=== PATIENT | female | born 1960 | race Caucasian/White ===

== ENCOUNTER → 2017-05-25 | Outpatient (CLI) | payer BC ==
--- NOTE | 2017-05-28 17:15 | Diagnostic Imaging Report ---
Bilateral screening mammogram 2D views with tomosynthesis. The current study was also evaluated with a Computer Aided Detection (CAD) system. INDICATION: Screening. No current complaints stated on the questionnaire. COMPARISON: 01/14/2016. FINDINGS: The breasts are composed of heterogeneously dense parenchyma which may decrease mammographic sensitivity. There is a focal asymmetry in the lateral upper aspect of the left breast. It persists on the tomographic views with suggestion of a subcentimeter nodule seen. The right breast demonstrates no significant change from the previous study. IMPRESSION: Focal compression views and ultrasound evaluation for focal asymmetry in the upper-outer aspect of the left breast is recommended. ACR BI-RADS Category 0: Incomplete. (Needs additional imaging evaluation). Result letter will be mailed to the patient. Note: At least 10% of breast cancer is not imaged by mammography. Dictated by: Dictated on workstation # [id number]
== END ==
LOC: RAD 12:46
PROVIDERS: ATTEND Nurse Practitioner
DX: Z12.31 Encounter for screening mammogram for malignant neoplasm of breast (principal)
CPT/HCPCS: 77067

== ENCOUNTER → 2017-08-10 | Outpatient (CLI) | payer BC ==
--- NOTE | 2017-08-10 08:51 | Diagnostic Imaging Report ---
EXAMINATION: Left breast ultrasound. INDICATION: Upper outer left breast focal asymmetry. FINDINGS: The outer aspect of the left breast and retroareolar region was scanned with no suspicious abnormality seen. Focally dilated ducts with no solid nodule are seen at the 2 o'clock zone 5 cm from the nipple and could possibly correlate with the focal asymmetry. IMPRESSION: No suspicious nodule or mass is seen. Annual screening mammography is recommended. ACR BI-RADS Category 2: Benign findings. Dictated by: Dictated on workstation # [id number]
--- NOTE | 2017-08-10 09:30 | Diagnostic Imaging Report ---
EXAMINATION: Left breast diagnostic mammogram with tomography evaluation. The current study was also evaluated with a Computer Aided Detection (CAD) system. INDICATION: Focal asymmetry in the upper outer aspect of the left breast seen on the 05/25/2017 screening exam. FINDINGS: There is background heterogeneously dense parenchyma seen. The focal compression views and tomography evaluation demonstrate a less prominent asymmetry on the CC projection. On the lateral view, there is persistent asymmetry with no definitive underlying lesion based on the tomography evaluation in favor of summation artifact of parenchyma. IMPRESSION: Findings are favored to relate to summation artifact of parenchyma. An ultrasound evaluation is pending. ACR BI-RADS Category 0: Incomplete. (Needs additional imaging evaluation). Result letter will be mailed to the patient. Note: At least 10% of breast cancer is not imaged by mammography. Dictated by: Dictated on workstation # [id number]
== END ==
LOC: RAD 07:35
PROVIDERS: ATTEND Nurse Practitioner
DX: N64.89 Other specified disorders of breast (principal)
CPT/HCPCS: 76642

== ENCOUNTER → 2018-09-11 | Outpatient (CLI) | payer BC ==
--- NOTE | 2018-09-11 20:43 | Diagnostic Imaging Report ---
EXAMINATION: Digital mammogram bilateral screening with 3D tomosynthesis. INDICATION: Screening. COMPARISON: This study was compared to the prior exams of 05/25/2017, 01/14/2016, and 01/08/2015. At this time, there are no current complaints. The current study was also evaluated with A Computer Aided Detection (CAD) system. FINDINGS: The fibroglandular tissue in both breasts is heterogeneously dense. This does limit the sensitivity of this exam. Overall, there does not appear to have been any significant change when compared to the prior study. No primary or secondary sign of malignancy is noted. 3D tomographic images fail to show any sign of malignancy. IMPRESSION: There is no radiographic evidence for malignancy. ACR BI-RADS Category 1: Negative. Result letter will be mailed to the patient. Note: At least 10% of breast cancer is not imaged by mammography. Dictated by: Dictated on workstation # [id number]
== END ==
LOC: RAD 10:00
PROVIDERS: ATTEND Nurse Practitioner
DX: Z12.31 Encounter for screening mammogram for malignant neoplasm of breast (principal)
CPT/HCPCS: 77067

== ENCOUNTER → 2019-01-02 | Outpatient (CLI) | payer BC ==
--- NOTE | 2019-01-02 15:29 | Diagnostic Imaging Report ---
INDICATION: Vaginal bleeding TECHNIQUE: Multiple real time smith scale sonographic images were obtained of the pelvis transabdominally and transvaginally. CORRELATION STUDY: None FINDINGS: UTERUS: 9.7 x 5.8 x 5.4 cm. The uterus appears unremarkable. ENDOMETRIUM: 14 mm. The endometrium appearing unremarkable. RIGHT OVARY: 5.3 x 4.6 x 4.1 cm Hypoechoic mass in the right ovary favoring cyst. The largest is 3.6 x 2.3 x 3.4 cm. Additional smaller one with some debris present measuring just under 2 cm in maximum size. Blood flow is present to the ovary. LEFT OVARY: 2.5 x 2.1 x 2.0 cm The left ovary has an unremarkable appearance. No concerning mass. Normal blood flow. No significant free pelvic fluid. IMPRESSION: 1. Endometrial thickness at 14 mm would be considered abnormally thickened in a presumably postmenopausal patient, and given the history, does raise concern for potential endometrial malignancy or perhaps less likely polyp and/or hyperplasia. Either close followup imaging correlation and/or endometrial biopsy recommended. 2. Right ovarian cyst, the largest up to 3.6 cm in size with a smaller 2 cm cyst slightly complex in appearance with debris present. : Dictated by: Dictated on workstation # [id number]
== END ==
LOC: RAD 13:09
PROVIDERS: ATTEND Nurse Practitioner
DX: N83.201 Unspecified ovarian cyst, right side (principal); R93.89 Abnormal findings on diagnostic imaging of other specified body structures
CPT/HCPCS: 76830; 76856

== ENCOUNTER 2019-02-20 05:31 | Outpatient (CLI) | payer BC ==
[~2019-02-20] VITALS: Ht 180.3 cm; Wt 86.2 kg
[2019-02-20] MEDS ORDERED: LISI-552 PO (13:45)
[2019-02-20] MEDS ORDERED: MEDR10TA9 PO (13:45)
== END 2019-02-20 13:57 | disposition home or self-care (01) ==
LOC: PREOP 05:31
PROVIDERS: ATTEND Obstetrics & Gynecology
DX: Z01.818 Encounter for other preprocedural examination (principal)

== ENCOUNTER 2019-03-14 06:15 | Day surgery (SDC) | payer BC ==
[~2019-03-14] VITALS: Ht 180.3 cm; Wt 86.2 kg
[2019-03-14] VITALS (11 sets, daily range): BP systolic 85–159; BP diastolic 52–97
[~2019-03-14 06:15] MED LIST: LISI-552 PO; MEDR10TA9 PO
[2019-03-14] MEDS ORDERED: ceFAZolin INJECTION 1,000 MG in WATER (STERILE) FOR INJECTION 10 ML IV ONE (06:30)
[2019-03-14] MEDS ORDERED: metroNIDAZOLE 500MG/100ML IVPB 100 ML IV ONE (06:30)
[2019-03-14] MEDS: LACTATED RINGERS 1,000 ML IV PRN ×2 (06:56→09:01)
[2019-03-14] MEDS ORDERED: BUPIVACAINE 0.25% 30 ML (SENSORCAINE) VIAL ONE (07:14)
[2019-03-14] MEDS ORDERED: fentaNYL INJECTION 100 MCG/2 ML AMP ONE (07:24)
[2019-03-14] MEDS ORDERED: MIDAZOLAM 2 MG/2 ML (VERSED) VIAL ONE (07:24)
--- NOTE | 2019-03-14 07:56 | Progress Note-Pre Operative ---
Pre-Operative Progress Note H&P Reviewed The H&P was reviewed, patient examined and no changes noted. Date Seen by Provider: March 14, 2019 Time Seen by Provider: 07:55 Date H&P Reviewed: March 14, 2019 Time H&P Reviewed: 06:30 Pre-Operative Diagnosis: menorrhagia/dysfunctional uterine bleeding, thickened endometrium CAMILLE DOOLEY DO March 14, 2019 07:56
[2019-03-14] MEDS ORDERED: DEXAMETHASONE 10 MG/ML (DECADRON) 1 ML VIAL ONE (09:08)
[2019-03-14] MEDS ORDERED: KETOROLAC 30 MG/ML VIAL ONE (09:08)
[2019-03-14] MEDS ORDERED: ONDANSETRON 4 MG/2 ML (SDV) Z0FRAN ONE (09:08)
[2019-03-14] MEDS ORDERED: proPOfol 200 MG/20 ML (DIPRIVAN) VIAL IV ONE (09:08)
[2019-03-14] MEDS ORDERED: LIDOCAINE PF 2% 5 ML (XYLOCAINE) VIAL ONE (09:09)
[2019-03-14] MEDS ORDERED: SEVOFLURANE (ULTANE) 15 ML INHAL SOLN ONE (09:09)
[2019-03-14] MEDS ORDERED: IBUP-844 PO (09:09)
[2019-03-14] MEDS ORDERED: OXC5T PO (09:09)
[2019-03-14] MEDS ORDERED: ACET-77 PO (09:09)
--- NOTE | 2019-03-14 09:14 | Discharge Inst-Women's Service ---
Discharge Inst-Women's Serv Depart Medication/Instructions New, Converted or Re-Newed RX: RX on Chart Instructions nothing in the vagina for 6 weeks. No driving for 24 hours Final Diagnosis thickened endometrium dysfunctional bleeding Consults/Follow Up Additional Follow Up: Yes (2 weeks with Wayne) Activity Activity: Activity as Tolerated Driving Instructions: No Driving for 24 Hours NO SMOKING: NO SMOKING Nothing Inside Vagina: No Douching, No [place], No Tampons Diet Discharge Diet: No Restrictions Symptoms to Report to : Bleeding Excessive, Pain Increased, Fever Over 101 Degrees F, Vaginal Bleeding Increase, Cramps in Feet or Legs, Vaginal Discharge Foul For Any Problems or Questions: Contact Your Physician CAMILLE DOOLEY DO March 14, 2019 09:14
[2019-03-14] MEDS ORDERED: morphine INJ 10 MG/ML 1ML (SYR OR VIAL) IVP ONE (09:15)
[2019-03-14] MEDS ORDERED: ONDANSETRON 4 MG/2 ML (SDV) Z0FRAN IVP PRN (09:15)
[2019-03-14] MEDS ORDERED: KETOROLAC 30 MG/ML VIAL IVP ONE (09:15)
[2019-03-14] MEDS ORDERED: ACETAMINOPHEN 500 MG TAB (TYLENOL) PO PRN (09:15)
--- NOTE | 2019-03-14 09:28 | Operative Report ---
Operative Report Date of Procedure/Surgery March 14, 2019 Surgeon (s) CAMILLE DOOLEY DO Heating And Cooling Technician (s): NA Post-Operative Diagnosis endometrrial thickening dysfunctional uterine bleeding polypoid tissue Procedure Performed Hysteroscopy, dilation and curettage Novasure endometrial ablation Description of Procedure Anesthesia Type: General Estimated blood loss (mL): minimal Specimen(s) collected/removed endometrial curettings Findings of the Procedure thickened polypoid appearing tissue, irregular, no masses Length 6.5 + Width 3.7 Power 32 80 seconds fluid deficit 140 Allergies and Home Medications Allergies Coded Allergies: No Known Drug Allergies (Unverified , 02/20/19) Home Medications Acetaminophen 500 Mg Tablet, 1,000 MG PO Q6H PRN for PAIN-MILD Prescribed by: CAMILLE DOOLEY on 03/14/19908 Ibuprofen 600 Mg Tablet, 600 MG PO Q6HR Prescribed by: CAMILLE DOOLEY on 03/14/19908 Lisinopril 20 Mg Tablet, 20 MG PO DAILY, (Reported) Medroxyprogesterone Acetate 10 Mg Tablet, 10 MG PO DAILY, (Reported) Oxycodone Hcl 5 Mg Tab, 5 MG PO Q4H PRN for PAIN-SEVERE Prescribed by: CAMILLE DOOLEY on 03/14/19908 Patient Home Medication List Home Medication List Reviewed: CAMILLE Pearson DO March 14, 2019 09:28
--- NOTE | 2019-03-14 10:19 | Anesthesia-General Post-Op ---
General Patient Condition Mental Status/LOC: Same as Preop Cardiovascular: Satisfactory Nausea/Vomiting: Absent Respiratory: Satisfactory Pain: Controlled Complications: Absent Post Op Complications Complications None Follow Up Care/Instructions Patient Instructions None needed. Anesthesia/Patient Condition Patient Condition Patient is doing well, no complaints, stable vital signs, no apparent adverse anesthesia problems. No complications reported per nursing. VERA FRANCOIS CRNA March 14, 2019 10:18
[2019-03-14] MEDS ORDERED: IBUPROFEN 600 MG (MOTRIN) TAB PO SCH (15:00)
== END 2019-03-14 11:05 | disposition home or self-care (01) ==
LOC: SDC 06:15
PROVIDERS: ATTEND Obstetrics & Gynecology
DX: N93.8 Other specified abnormal uterine and vaginal bleeding (principal); R93.89 Abnormal findings on diagnostic imaging of other specified body structures; N84.0 Polyp of corpus uteri; I10 Essential (primary) hypertension; Z79.899 Other long term (current) drug therapy
CPT/HCPCS: 87081

== ENCOUNTER → 2020-07-16 | Outpatient (CLI) | payer BC ==
[~2020-07-16] MED LIST changes: +ACET-78 PO; +IBUP-844 PO; +OXC5T PO
--- NOTE | 2020-07-19 19:03 | Diagnostic Imaging Report ---
EXAM: Digital mammogram, bilateral screening. COMPARISONS: This study was compared to the prior exams of 09/11/2018, 05/25/2017 and 01/14/2016. There are no current complaints. 3d digital tomography Bilateral History: Routine screening Technique: Bilateral 3d digital tomographic views were obtained with [employer] and reviewed on a [employer] workstation. In addition, CAD - computer aided detection was utilized. Findings: Breast Tissue Density B : The breast tissue is composed of mixed fatty and fibroglandular tissue. There are no suspicious masses, microcalcifications or areas of architectural distortion. Impression: No suspicious findings. BI-RADS Category 1: Negative. Normal interval followup. The patient will receive a letter with the results in the mail. A mammogram does not have 100% sensitivity and therefore a negative imaging study should not delay further work up of a suspicious abnormality. Patient information is entered into the [facility] reminder system using [employer] with a target due date for the next screening mammogram. The patient will receive a reminder. "Our facility is accredited by the [employer] Mammography Program." ACR BI-RADS Category 1: Negative. Result letter will be mailed to the patient. Note: At least 10% of breast cancer is not imaged by mammography. Dictated on workstation # [id number]
== END ==
LOC: RAD 15:30
PROVIDERS: ATTEND Nurse Practitioner
DX: Z12.31 Encounter for screening mammogram for malignant neoplasm of breast (principal)
CPT/HCPCS: 77063; 77067

== ENCOUNTER → 2021-09-14 | Outpatient (CLI) | payer BC ==
[~2021-09-14] MED LIST changes: -LISI-552 PO; +LISI20TA26 PO
--- NOTE | 2021-09-14 12:30 | Diagnostic Imaging Report ---
INDICATION: Routine screening. COMPARISON: 07/16/2020 and 09/11/2018. TECHNIQUE: 2D and 3D bilateral screening mammography was performed with CAD. FINDINGS: Scattered fibroglandular densities are identified bilaterally. The parenchymal pattern appears stable. No mass or malignant-appearing microcalcifications are seen. The axillae are unremarkable. IMPRESSION: No mammographic features suspicious for malignancy are identified. ACR BI-RADS Category 1: Negative. Result letter will be mailed to the patient. Note: At least 10% of breast cancer is not imaged by mammography. Dictated by: Dictated on workstation # [id number]
== END ==
LOC: RAD 10:33
PROVIDERS: ATTEND Surgery
DX: Z12.31 Encounter for screening mammogram for malignant neoplasm of breast (principal)
CPT/HCPCS: 77063; 77067

== ENCOUNTER → 2021-12-02 | Outpatient (CLI) | payer BC ==
--- NOTE | 2021-12-02 17:29 | Diagnostic Imaging Report ---
PROCEDURE: Pelvic complete, transabdominal and transvaginal sonogram. Limited pelvic Doppler. TECHNIQUE: Multiple real-time grayscale images were obtained of the pelvis in various projections transabdominally and transvaginally. Limited pelvic duplex images were obtained. HISTORY: Abnormal uterine bleeding. COMPARISON: 01/02/2019. FINDINGS: Uterus: The uterus is anteverted and measures 8.5 x 4.2 x 5.0 cm. There is suggestion of a 1.5 cm intramural uterine fibroid. Endometrium: The endometrium is increased in thickness and measures 0.6 cm. There is no fluid within the endometrial cavity. Adnexa: There is a 1.5 cm unilocular right ovarian cyst. Right ovary is otherwise unremarkable. The left ovary is unremarkable. The right ovary measures 3.6 x 2.4 x 2.9 cm and the left ovary measures 2.6 x 1.0 x 2.0 cm. Duplex images reveal normal vascular flow to both ovaries. Other: There is no free fluid within the pelvis. IMPRESSION: 1. Mildly thickened endometrium measuring 0.6 cm in thickness. Given findings of uterine bleeding in a postmenopausal patient, recommend correlation with endometrial biopsy. Dictated by: Dictated on workstation # [id number]
== END ==
LOC: RAD 14:30
PROVIDERS: ATTEND Nurse Practitioner
DX: N93.8 Other specified abnormal uterine and vaginal bleeding (principal); R93.89 Abnormal findings on diagnostic imaging of other specified body structures; Z78.0 Asymptomatic menopausal state
CPT/HCPCS: 76830; 76856

== ENCOUNTER → 2022-08-17 | Outpatient (CLI) | payer BC ==
--- NOTE | 2022-08-17 17:58 | Cardiology Stress Test Report ---
TREADMILL STRESS TEST Date of procedure: 08/17/2022. Primary care provider: Janis Forte MD. Admitting physician: Janis Forte MD. INDICATION: Atypical chest pain. BASELINE ELECTROCARDIOGRAM: Sinus rhythm, unremarkable tracing STRESS TEST PROCEDURE: The patient was exercised for a total of 3 minutes and 0 seconds of the standard Matthew protocol achieving a maximum MET level of 4.6. The resting heart rate was 66 bpm and the peak heart rate was 165 bpm, which represents 103% of the maximum predicted heart rate. The resting blood pressure was 168/100 mmHg and the peak blood pressure was 207/114 mmHg. This represents a normal heart rate and a hypertensive blood pressure response to exercise with resting hypertension. The test was stopped due to target heart rate attained. There was no chest discomfort during the test. There were isolated premature ventricular complexes during the test. There were borderline stress induced electrocardiogram changes with [address] depression in the inferior and lateral leads that improved in recovery. The patient exhibited fair exercise capacity for age. IMPRESSION: 1. Normal heart rate and a hypertensive blood pressure response to exercise with resting hypertension. 2. There was no exercise-induced chest discomfort. 3. There were isolated premature ventricular complexes during the test. 4. There were borderline exercise-induced electrocardiogram changes with [address] depression in the inferior and lateral leads. 5. The patient exhibited fair exercise capacity for age at 3 minutes of the Matthew protocol. 6. This is a borderline abnormal result. Consider further evaluation with an exercise stress echocardiogram or exercise nuclear stress test if clinically indicated. Certain portions of this document may have been dictated utilizing voice recognition technology. Inherent to this technology, typographical and grammatical errors may exist. As much as I am diligent to identify and correct these mistakes, some errors may remain in the document. JESUS MANUEL PISANO JR, MD Aug 17, 2022 17:58
== END ==
LOC: CARD 14:00
PROVIDERS: ATTEND Pediatrics
DX: R07.89 Other chest pain (principal)
CPT/HCPCS: 93017

== ENCOUNTER 2022-09-19 07:01 | Day surgery (SDC) | payer BC ==
[~2022-09-19] VITALS: Ht 177.8 cm; Wt 90.1 kg
[2022-09-19] VITALS (10 sets, daily range): BP systolic 123–152; BP diastolic 77–87
[2022-09-19] MEDS ORDERED: NS IV 1000 ML 1,000 ML IV SCH ×2 (07:30→11:30)
[2022-09-19 07:46] LABS: HEMATOCRIT 40 % (35-52); HEMOGLOBIN 13.1 g/dL (11.5-16.0); MEAN CORPUSCULAR HEMOGLOBIN 30 pg (25-34); MEAN CORPUSCULAR HGB CONC 33 g/dL (32-36); MEAN CORPUSCULAR VOLUME 92 fL (80-99); MEAN PLATELET VOLUME 10.4 fL (9.0-12.2); PLATELET COUNT 213 10^3/uL (130-400); WHITE BLOOD COUNT 6.4 10^3/uL (4.3-11.0)
[2022-09-19] MEDS ORDERED: BIOT5TAB PO (07:48)
[2022-09-19] MEDS ORDERED: LISI10TA25 PO (07:48)
[2022-09-19] MEDS ORDERED: GLUC1CAP37 PO (07:48)
[2022-09-19] MEDS ORDERED: HEParin (CATH LAB) 2,000 ML IV ONE (07:51)
[2022-09-19] MEDS ORDERED: NS IV 1000 ML 1,000 ML ONE (07:51)
[2022-09-19] MEDS ORDERED: LIDOCAINE 1% INJ 30 ML (XYLOCAINE) VIAL ONE (07:51)
[2022-09-19 07:58] LABS: INR 0.9 (0.8-1.4); PROTHROMBIN TIME PATIENT 12.2 SEC (12.2-14.7)
[2022-09-19 08:07] LABS: ALBUMIN 3.7 GM/DL (3.2-4.5); BILIRUBIN,TOTAL 0.2 MG/DL (0.1-1.0); CREATININE SERUM 0.92 MG/DL (0.60-1.30); POTASSIUM 3.9 MMOL/L (3.6-5.0)
[2022-09-19] MEDS ORDERED: fentaNYL INJ 100 MCG/2 ML AMP ONE (10:03)
[2022-09-19] MEDS ORDERED: MIDAZOLAM 5 MG/5 ML (VERSED) VIAL ONE (10:03)
--- NOTE | 2022-09-19 11:18 | Cardiac Procedure Note-CS/ASA ---
Pre-Procedure Note Pre-Op Procedure Note Date of Available H&P: Sep 13, 2022 Date H&P Reviewed: Sep 19, 2022 Time H&P Reviewed: 10:00 History & Physical: H&P Reviewed, No changes noted Conscious Sedation Pre-Proced ASA Score 3 For ASA 3 and 4: Consider anesthesia and medical clearance. Also, for patients with a history of failed moderate sedation consider anesthesia. Airway Lungs Heart ASA score ASA 1: a normal healthy patient ASA 2: a patient with a mild systemic disease (mid diabetes, controlled hypertension, obesity ASA 3: a patient with a severe systemic disease that limits activity (angina, COPD, prior Myocardial infarction) ASA 4: a patient with an incapacitating disease that is a constant threat to life (CHF, renal failure) ASA 5: a moribund patient not expected to survive 24 hrs. (ruptured aneurysm) ASA 6: a declared brain- patient whose organs are being harvested. For emergent operations, add the letter E after the classification Mallampati Classification Grade 2 Sedation Plan Analgesia, Amnesia, Plan communicated to team members The patient is an appropriate candidate to undergo the planned procedure, sedation, and anesthesia. The patient immediately re-assessed prior to indication. YAZAN WEISS MD FACP FAC CCDS Sep 19, 2022 11:18
--- NOTE | 2022-09-19 11:26 | Discharge Inst-Cardiology ---
Discharge Inst-Cardiac Discharge Medications Continued Medications: Biotin (Biotin) 5 Mg Tablet 5 MG PO DAILY, TAB Glucosa Mckinnon 2Kcl/Chondroitin Mckinnon (Glucosamine & Chondroitin Cap) 500 Mg-400 Mg Capsule 2 EACH PO DAILY, CAP Lisinopril (Lisinopril) 10 Mg Tablet 10 MG PO DAILY, TAB YAZAN WEISS MD FACP [facility] CCDS Sep 19, 2022 11:26
--- NOTE | 2022-09-19 11:27 | Discharge Inst-Post CATH ---
Discharge Inst-CATH/EP Post Cardiac Cath/EP D/C Inst Follow Up/Plan F/u with Dr Thomaosn in 2 weeks <b>CARDIAC CATH/EP PROCEDURE DISCHARGE INSTRUCTIONS</b> ACTIVITY * Go Home directly and rest. * Limit activity of the leg (or wrist if it was used) for 7 days including aerobics, swimming, jogging, bicycling, etc. * Restrict stair-climbing for 7 days if possible, if not, climb up with your non-cath leg, then bring together on the same step. * Avoid lifting, pushing, pulling or excessive movement of the affected extremity for 7 days. * Customary sexual activity may be resumed after 2 days-use caution not to use a position that strains or causes pain to the affected extremity. * No driving for 24 hours. * NO SMOKING. * Avoid straining for bowel movements for 7 days. * Gentle walking on level ground is allowed. * Returning to work will depend on the type of procedure and the results. Your doctor will discuss this with you. CALL YOUR DOCTOR FOR ANY OF THE FOLLOWING: *If bleeding from the puncture site occurs- Apply gentle pressure to site with clean cloth and call your doctor or EMS. * If a knot or lump forms under the skin, increases in size, or causes pain. * If bruising appears to be worsening or moving further down your leg instead of disappearing. * Temperature above 101 F. CARE OF YOUR GROIN INCISION; * Bruising or purple discoloration of the skin near the puncture site is common. * You may shower only, no bathtub bathing for 5 days. Be careful to avoid slipping as your leg may feel stiff. * If a closure device was used on your femoral artery, please see the attached guide regarding care of the device and your leg. * Leave dressing on FOR 24 hours. CARE OF YOUR WRIST INCISION; * Bruising or purple discoloration of the skin near the puncture site is common. * You may shower. * DO NOT submerge wrist. * Leave dressing on FOR 24 hours. YAZAN THOMASON MD [facility] CCDS Sep 19, 2022 11:27
[2022-09-19] MEDS ORDERED: PATIENT MAY USE OWN MEDS, ALL PO SCH (11:30)
--- NOTE | 2022-09-19 22:02 | OPERATIVE REPORT ---
DATE OF SERVICE: 09/19/2022 CARDIAC CATHETERIZATION REPORT INDICATIONS: The patient is a 61-year-old lady who has been experiencing chest discomfort and a stress test carried out by Dr. Casper recently, was reported as being borderline abnormal. Cardiac catheterization was carried out today after having obtained an informed consent. DESCRIPTION OF PROCEDURE: She was brought to the cardiac catheterization laboratory in a fasting state. Right groin was prepared and draped in the usual sterile fashion. 1% lidocaine as local anesthesia. Modified Seldinger technique was used to advance a 5-[place] sheath in right femoral artery. Angiography of the right femoral artery was cleared [ ] the sheath. A 5-[place] JL4 catheter was used for left coronary angiography and 5-Central African JR4 catheter was used for right coronary angiography. A 5-[place] pigtail catheter was used for left heart catheterization and left ventricular angiography. At the end of the procedure, Mynx was used to achieve hemostasis following sheath removal. She tolerated the procedure well. HEMODYNAMICS: Left ventricular end diastolic pressure, following coronary angiography was 11 mmHg. There was no significant pressure gradient on pullback across the aortic valve. Ascending aortic pressure was 122/88 with a mean of 105 mmHg. CORONARY ANGIOGRAPHY: Left main coronary artery is free of significant disease. Left anterior descending and left circumflex arteries are free of significant disease. Right coronary artery is dominant and does not exhibit significant disease. LEFT VENTRICULAR ANGIOGRAPHY: Left ventricular angiography was carried out in the right anterior oblique projection. Global left ventricular systolic function was normal. Left ventricular ejection fraction is estimated to be 55-60%. CONCLUSIONS: 1. No angiographically significant coronary artery disease. 2. Normal global left ventricular systolic function with an ejection fraction of 55-60%. 3. Normal left ventricular end-diastolic pressure. DISCUSSION AND RECOMMENDATIONS: Based on results of the study, chest discomfort does not appear to be of cardiac origin. Continue risk factor modification is advised. Outpatient followup is advised. Job ID: [id number] DocumentID: [id number] Dictated Date: 09/19/2022 11:24:24 Pan Cleaner Date: 09/19/2022 22:01:00 Dictated By: YAZAN WEISS MD; FANI; FACP; FACC;
== END 2022-09-19 14:35 | disposition home or self-care (01) ==
LOC: CATH 07:01 → SDC 11:46 → CATH 14:35
PROVIDERS: ATTEND Internal Medicine Cardiovascular Disease
DX: R07.89 Other chest pain (principal); R94.39 Abnormal result of other cardiovascular function study; I10 Essential (primary) hypertension; Z79.899 Other long term (current) drug therapy
CPT/HCPCS: 80053; 80061; 85027; 85610; 85730; 87081; 93005; 93458; C1760; C1894; 36415

== ENCOUNTER → 2022-10-06 | Outpatient (CLI) | payer BC ==
[~2022-10-06] MED LIST changes: +BIOT5TAB PO; +GLUC1CAP37 PO; +LISI10TA25 PO
--- NOTE | 2022-10-06 16:42 | Diagnostic Imaging Report ---
INDICATION: Routine screening. COMPARISON: Prior mammograms from 09/14/2021 and 07/16/2020. EXAMINATION: 2D and 3D bilateral screening mammography was performed with CAD. The current study was also evaluated with a Computer Aided Detection (CAD) system. FINDINGS: Scattered fibroglandular densities are identified, bilaterally. No spiculated mass or malignant-appearing microcalcifications are seen. Circumscribed density in the upper slightly inner aspect of the left breast is noted, 5 to 6 cm from the nipple. This is slightly larger than prior exam and may represent enlarging cysts. No other masses are identified. Axillae are unremarkable. IMPRESSION: Enlarging density in the upper and slightly inner left breast, 5 to 6 cm from the nipple, likely an enlarging cyst. Further evaluation with ultrasound is recommended. ACR BI-RADS Category 0: Incomplete. (Needs additional imaging evaluation). Result letter will be mailed to the patient. Note: At least 10% of breast cancer is not imaged by mammography. Dictated by: Dictated on workstation # [id number]
== END ==
LOC: RAD 15:00
PROVIDERS: ATTEND Pediatrics
DX: Z12.31 Encounter for screening mammogram for malignant neoplasm of breast (principal)
CPT/HCPCS: 77063; 77067

== ENCOUNTER → 2022-10-20 | Outpatient (CLI) | payer BC ==
--- NOTE | 2022-10-20 12:12 | Diagnostic Imaging Report ---
INDICATION: Left breast density. Correlation is made with screening mammogram from 10/06/2022. Sonographic interrogation upper and inner aspect left breast demonstrates a simple cyst 11 o'clock location, 6 cm from the nipple measuring 9 mm x 5 mm x 8 mm. This corresponds to the mammographic density. No solid mass is identified. IMPRESSION: Simple cyst 11 o'clock location, 6 cm from the nipple, corresponding to the mammographic density. The patient may return to routine annual screening mammography. ACR BI-RADS Category 2: Benign findings. Result letter will be mailed to the patient. Note: At least 10% of breast cancer is not imaged by mammography. BI-RADS Category 2 Dictated by: Dictated on workstation # [id number]
== END ==
LOC: RAD 10:31
PROVIDERS: ATTEND Pediatrics
DX: N60.02 Solitary cyst of left breast (principal); R92.8 Other abnormal and inconclusive findings on diagnostic imaging of breast
CPT/HCPCS: 76641

== ENCOUNTER → 2023-03-21 | Outpatient (CLI) | payer BC ==
--- NOTE | 2023-03-21 15:43 | Diagnostic Imaging Report ---
INDICATION: Chronic ankle pain, especially posteriorly and laterally. EXAMINATION: Left lower extremity MRI without contrast on 03/21/2023. FINDINGS: There is scattered hyperintensity throughout the visualized tarsals and metatarsal bases, predominantly involving the middle and lateral cuneiforms as well as portions of the cuboid and the base of the visualized 4th and possibly 3rd metatarsals. These findings appear to represent osteoarthritic findings. No discrete fracture is appreciated. The Achilles tendon is intact. The plantar fascia is thickened, perhaps due to a prior history of plantar fasciitis. There is no surrounding edema to suggest an acute abnormality. The extensor and flexor tendons appear intact. The peroneal tendons are intact. A small amount of fluid is seen in the surrounding sheath, suggesting possible tenosynovitis at and below the level of the malleolus. The anterior talofibular ligament is poorly visualized, perhaps chronically torn or markedly thinned from a prior injury. Correlate with patient's symptoms. The posterior talofibular ligament is intact. The posterior inferior tibiofibular ligament is intact. There is a focal defect centrally within the anterior inferior tibiofibular ligament suggesting a tear, possibly chronic given diffuse surrounding thickening of the residual ligament. The deltoid ligament is intact. The calcaneofibular ligament is intact but thickened, likely due to scarring. There is a small effusion within the posterior tibiotalar joint. IMPRESSION: 1. Suspected chronic tear if not marked thinning of the anterior talofibular ligament which is poorly seen. 2. Thickening of the calcaneofibular ligament and the residual anterior inferior tibiofibular ligament, suggesting prior injury. A focal defect through the mid substance of the anterior inferior tibiofibular ligament suggests a focal central tear. 3. Findings of mild tenosynovitis along the peroneal tendons with all visualized tendons intact. 4. 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 5. Not mentioned in the body of the report, heterogeneous edema is noted within Kager's fat pad of uncertain etiology. An adjacent small effusion is seen in the posterior tibiotalar joint. Dictated by: Dictated on workstation # [id number]
== END ==
LOC: RAD 14:29
PROVIDERS: ATTEND Orthopaedic Surgery
DX: M65.872 Other synovitis and tenosynovitis, left ankle and foot (principal); M19.072 Primary osteoarthritis, left ankle and foot; M22.41 Chondromalacia patellae, right knee; M22.42 Chondromalacia patellae, left knee; M76.62 Achilles tendinitis, left leg
CPT/HCPCS: 73721